=== PATIENT | female | born 1980 | race Caucasian/White ===

== ENCOUNTER → 2019-08-02 | Outpatient (CLI) | payer OTHER ==
[~2019-08-02] MED LIST: AZIT250T PO; IPRA3AMP29 NEB; PRED5TAB PO
== END | disposition home or self-care (01) ==
LOC: LAB 21:09
PROVIDERS: ATTEND Internal Medicine Cardiovascular Disease
DX: Z20.828 Contact with and (suspected) exposure to other viral communicable diseases (principal)
CPT/HCPCS: 87635

== ENCOUNTER → 2019-08-07 | Outpatient (CLI) | payer OTHER ==
[2019-08-07 13:56] LABS: BASO % 1 % (0-3); EOS % 1 % (0-3); HEMATOCRIT 43.5 % (36.0-47.0); HEMOGLOBIN 14.4 g/dL (12.0-15.5); LYMPH # 0.7 x10^3/uL (1.0-4.8); LYMPH % 20 % (24-48); MEAN CORPUSCULAR HEMOGLOBIN 31 pg (25-35); MEAN CORPUSCULAR HGB CONC 33 g/dL (31-37); MEAN CORPUSCULAR VOLUME 92 fL (79-100); MONO # 0.3 x10^3/uL (0.0-1.1); MONO % 9 % (0-9); NEUT # 2.5 x10^3uL (1.8-7.7); NEUT % 69 % (31-73); PLATELET COUNT 103 x10^3/uL (140-400); RED BLOOD COUNT 4.74 x10^6/uL (3.50-5.40); RED CELL DISTRIBUTION WIDTH 13.4 % (11.5-14.5); WHITE BLOOD COUNT 3.5 x10^3/uL (4.0-11.0)
[2019-08-07 14:03] LABS: CALCIUM 9.1 mg/dL (8.5-10.1); GFR 62.1; POTASSIUM 3.5 mmol/L (3.5-5.1)
--- NOTE | 2019-08-07 14:10 | RAD ---
CT CHEST WO CONTRAST INDICATION: Dyspnea, positive for COVID 19. COMPARISON STUDY: Radiograph 01/04/2013. TECHNIQUE: Unenhanced axial images were obtained through the lungs and upper abdomen. Coronal and sagittal multiplanar reconstructions were also obtained. PQRS compliance statement: One or more of the following individualized dose reduction techniques were utilized for this examination: 1. Automated exposure control 2. Adjustment of the mA and/or kV according to patient size 3. Use of iterative reconstruction technique FINDINGS: Lungs and Airways: Bilateral peripheral subpleural groundglass opacities involving the middle lobe, lingula, and lower lobes. Indeterminate middle lobe nodule measuring 0.4 cm (series 2 image 51). Normal central airways. Pleura: The pleural spaces are normal. Heart and Mediastinum: The visualized thyroid gland is normal in size and attenuation. No axillary or supraclavicular lymphadenopathy. No mediastinal, hilar or retrocrural lymphadenopathy. The heart and pericardium are within normal limits. The great vessels of the thorax are normal. Residual thymic tissue Abdomen: The visualized abdominal organs demonstrate no abnormality. Bones and Soft Tissues: The visualized skeletal structures and soft tissues of the chest wall are within normal limits. IMPRESSION: Bilateral peripheral groundglass opacities, likely representing a multifocal infectious/inflammatory process given patient's history of Covid 19 infection. Electronically signed by: Guevara Bhardwaj MD (08/07/2019 2:07 PM) [id number]
== END | disposition home or self-care (01) ==
LOC: CT 13:10
PROVIDERS: ATTEND Family Medicine
DX: U07.1 COVID-19 (principal); J98.8 Other specified respiratory disorders
CPT/HCPCS: 36415; 71250; 80048; 85025

== ENCOUNTER → 2019-08-21 | Outpatient (CLI) | payer OTHER ==
[~2019-08-21] MED LIST changes: +IOHEXOL 350 MG/ML 100 ML VIAL. IV ONE
--- NOTE | 2019-08-21 14:25 | RAD ---
EXAM: CT Pulmonary Angiogram INDICATION: Shortness of breath. Covid positive TECHNIQUE: Multi-detector row images were acquired from the thoracic inlet through the upper abdomen with the use of IV contrast. Sagittal and coronal images were acquired from the transaxial data. MIP images of the pulmonary arteries were obtained. All CT scans performed at this facility utilize dose optimization techniques as appropriate to the exam, including the following: Automated exposure control and adjustment of the mA and/or KV according to patient size (this includes techniques or standardized protocols for targeted exams where dose is indication/reason for exam). IV CONTRAST: Administered COMPARISON: None FINDINGS: PULMONARY ARTERIES: No pulmonary emboli are identified. CARDIOVASCULAR: Unremarkable Aorta is normal caliber. MEDIASTINUM & MOON: No adenopathy or masses. LUNGS: Bilateral lower lobe patchy groundglass opacities are present peripherally. PLEURAL SPACE: No pleural effusions or pneumothorax. OSSEOUS & SOFT TISSUE: Unremarkable ABDOMEN: The visualized portions of the upper abdomen are unremarkable. IMPRESSION: 1. No pulmonary emboli. 2. Bilateral groundglass opacities in the lower lobes, compatible with an atypical pneumonia. Electronically signed by: Sangita Bowen MD (08/21/2019 2:23 PM) [id number]
[2019-08-21 14:31] LABS: BASO # 0.1 x10^3/uL (0.0-0.2); BASO % 2 % (0-3); EOS # 0.1 x10^3/uL (0.0-0.7); EOS % 2 % (0-3); HEMATOCRIT 42.3 % (36.0-47.0); HEMOGLOBIN 13.9 g/dL (12.0-15.5); LYMPH # 1.3 x10^3/uL (1.0-4.8); LYMPH % 24 % (24-48); MEAN CORPUSCULAR HEMOGLOBIN 30 pg (25-35); MEAN CORPUSCULAR HGB CONC 33 g/dL (31-37); MEAN CORPUSCULAR VOLUME 92 fL (79-100); MONO # 0.5 x10^3/uL (0.0-1.1); MONO % 9 % (0-9); NEUT # 3.4 x10^3uL (1.8-7.7); NEUT % 64 % (31-73); PLATELET COUNT 157 x10^3/uL (140-400); RED BLOOD COUNT 4.63 x10^6/uL (3.50-5.40); RED CELL DISTRIBUTION WIDTH 13.3 % (11.5-14.5); WHITE BLOOD COUNT 5.3 x10^3/uL (4.0-11.0)
[2019-08-21 14:54] LABS: ALBUMIN 3.9 g/dL (3.4-5.0); CALCIUM 9.4 mg/dL (8.5-10.1); GFR 62.1; POTASSIUM 3.6 mmol/L (3.5-5.1); TOTAL BILIRUBIN 0.5 mg/dL (0.2-1.0); TOTAL PROTEIN 7.7 g/dL (6.4-8.2)
--- NOTE | 2019-08-21 17:01 | EKG ---
[address] [address] Test Date: 1999-05-07 Test Time: 02:45:41 Pat Name: CAROL NAZARIO Department: Room: Gender: F Public Housing Manager: : 1980 Requested By: LEONARDA TODD Order Number: [id number] Reading MD: Christiano Ryan Measurements Intervals [place] Rate: 87 P: 26 UT: 138 QRS: 28 QRSD: 114 T: 28 QT: 346 QTc: 417 Interpretive Statements SINUS RHYTHM LEFT ATRIAL ABNORMALITY INCOMPLETE RIGHT BUNDLE BRANCH BLOCK T ABNORMALITY IN ANTEROSEPTAL LEADS ABNORMAL ECG RI6.01 No previous ECG available for comparison Electronically Signed On 08-21-2019 19:26:45 CDT by Christiano Ryan
== END | disposition home or self-care (01) ==
LOC: CT 13:22
PROVIDERS: ATTEND Family Medicine
DX: J18.9 Pneumonia, unspecified organism (principal); R06.02 Shortness of breath; R94.31 Abnormal electrocardiogram [ECG] [EKG]; Z09 Encounter for follow-up examination after completed treatment for conditions other than malignant neoplasm; Z86.19 Personal history of other infectious and parasitic diseases
CPT/HCPCS: 36415; 71275; 80053; 83880; 84484; 85025; 85379; 93005; Q9967

== ENCOUNTER 2019-08-22 17:13 | Inpatient (IN) | payer OTHER ==
[~2019-08-22] VITALS: Ht 175.3 cm; Wt 84.3 kg
--- NOTE | 2019-08-22 17:39 | PHYS DOC ---
Past History Past Medical History: Asthma Additional Past Medical Histor: ITP Past Surgical History: No Surgical History Smoking: Non-smoker Drug Use: None General Adult EDM: Chief Complaint: SHORTNESS OF BREATH HPI: HPI: Patient is a 39 year old female who presents with evaluation of shortness of air. Patient has a known diagnosis of COVID-19 back on August 01. Patient has a history of asthma. Patient has already completed a course of Plaquenil and oral Zithromax several days ago. She states that her shortness of air has begun to worsen. Patient become short of breath when bending or moving. She is also short of breath with exertion up stairs etc. Pt does not have conversational dyspnea. Patient had a CT scan done as an outpatient yesterday that showed groundglass appearance. There was no pulmonary embolism present. Her CBC and chemistries yesterday were unremarkable. Patient been in contact with Dr. Jones her physician. She is also been in phone contact with Dr. Cole the Platform Software Engineer. She was told she should come to the hospital and to be a dmitted and placed on atypical pneumonia IV antibiotic. Review of Systems: Review of Systems: Constitutional: Denies fever or chills Eyes: Denies change in visual acuity HENT: Denies nasal congestion or sore throat Respiratory: Has shortness of breath Cardiovascular: Denies chest pain or edema GI: Denies abdominal pain, nausea, vomiting, bloody stools or diarrhea : Denies dysuria Musculoskeletal: Denies back pain or joint pain Integument: Denies rash Neurologic: Denies headache, focal weakness or sensory changes Endocrine: Denies polyuria or polydipsia Lymphatic: Denies swollen glands Psychiatric: Denies depression or anxiety Heart Score: Risk Factors: Risk Factors: DM, Current or recent (<one month) smoker, HTN, HLP, family history of CAD, obesity. Risk Scores: Score 0 - 3: 2.5% MACE over next 6 weeks - Discharge Home Score 4 - 6: 20.3% MACE over next 6 weeks - Admit for Clinical Observation Score 7 - 10: 72.7% MACE over next 6 weeks - Early Invasive Strategies Allergies: Allergies: Allergies Coded Allergies Type Severity Reaction Last Updated Verified No Known Drug Allergies 08/21/19 No Physical Exam: PE: Constitutional: Well developed, well nourished, mild distress, non-toxic appearance. [] HENT: Normocephalic, atraumatic, bilateral external ears normal, oropharynx moist, no oral exudates, nose normal. [] Eyes: PERRLA, EOMI, conjunctiva normal, no discharge. [] Neck: Normal range of motion, no tenderness, supple, no stridor. [] Cardiovascular:Heart rate regular rhythm, no murmur [] Lungs & Thorax: Bilateral breath sounds minimal decreased breath sounds, scant wheezing [] Abdomen: Bowel sounds normal, soft, no tenderness, no masses, no pulsatile masses. [] Skin: Warm, dry, no erythema, no rash. [] Back: No tenderness, no CVA tenderness. [] Extremities: No tenderness, no cyanosis, no clubbing, ROM intact, no edema. [] Neurologic: Alert and oriented X 3, normal motor function, normal sensory function, no focal deficits noted. [] Psychologic: Affect normal, judgement normal, mood normal. [] Current Patient Data: Labs: positive COVID 19 on August 01 EKG: EKG: [] Radiology/Procedures: Radiology/Procedures: CT chest 08/20: ground class atypical pneumonia, no PE[] Course & Med Decision Making: Course & Med Decision Making Pertinent Labs and Imaging studies reviewed. (See chart for details) 1837 Dr. Multani is the accepting physician and case was discussed at length. In light of the fact the patient had worsening symptoms and known COVID-19 infection will admit to the hospital. There was pneumonia noted on CT scan from yesterday. We will start pt on IV zithromax, blood cultures added. Char Disclaimer: Char Disclaimer: This electronic medical record was generated, in whole or in part, using a voice recognition dictation system. Departure Departure: Impression: Primary Impression: Atypical pneumonia Additional Impressions: COVID-19 virus infection History of asthma Disposition: ADMITTED INPATIENT Admitting Physician: Brayan Multani Condition: STABLE Referrals: PCP,NO (PCP) COVID-19 Patient Risks: Age 65 or older: No Sign of co-morbidity: Yes Exp to person + for COVID: Yes Exp to PUI: Yes Travel from affected area: No Lower respiratory symptoms: Yes Fever: No Other: Yes Comments: short of air with exertion PPE Use: Full PPE with N95 mask or PAPR: Yes (face shield, gown, gloves, booties, n95 mask) VIPUL BADILLO DO Aug 22, 2019 17:39
[2019-08-22] MEDS ORDERED: IV NORMAL SALINE 1,000ML 1,000 ML IV ONE (18:15)
[2019-08-22] MEDS ORDERED: AZITHROMYCIN 500 MG in IV NORMAL SALINE 250ML 250 ML IV ONE (19:15)
[2019-08-22] MEDS ORDERED: ACETAMINOPHEN 325 MG TABLET PO PRN (19:15)
[2019-08-22] MEDS ORDERED: AZITHROMYCIN 500 MG VIAL. IV ONE (19:32)
[2019-08-22] MEDS ORDERED: IV NORMAL SALINE 250ML 250 ML ONE (19:32)
[2019-08-22 19:37] LABS: CALCIUM 9.4 mg/dL (8.5-10.1); GFR 62.1; POTASSIUM 3.7 mmol/L (3.5-5.1)
[2019-08-22 19:43] LABS: ALBUMIN 3.7 g/dL (3.4-5.0); ALBUMIN/GLOBULIN RATIO 1.1 (1.0-1.7); TOTAL BILIRUBIN 0.3 mg/dL (0.2-1.0); TOTAL PROTEIN 7.2 g/dL (6.4-8.2)
[2019-08-22 20:02] LABS: BASO % 1 % (0-3); EOS # 0.1 x10^3/uL (0.0-0.7); EOS % 2 % (0-3); HEMATOCRIT 39.4 % (36.0-47.0); HEMOGLOBIN 12.9 g/dL (12.0-15.5); LYMPH # 1.4 x10^3/uL (1.0-4.8); LYMPH % 26 % (24-48); MEAN CORPUSCULAR HEMOGLOBIN 30 pg (25-35); MEAN CORPUSCULAR HGB CONC 33 g/dL (31-37); MEAN CORPUSCULAR VOLUME 92 fL (79-100); MONO # 0.4 x10^3/uL (0.0-1.1); MONO % 8 % (0-9); NEUT # 3.3 x10^3uL (1.8-7.7); NEUT % 63 % (31-73); PLATELET COUNT 140 x10^3/uL (140-400); RED CELL DISTRIBUTION WIDTH 13.5 % (11.5-14.5); WHITE BLOOD COUNT 5.2 x10^3/uL (4.0-11.0)
[2019-08-22 21:03] VITALS: BP 122/77
--- NOTE | 2019-08-22 21:53 | NUR ---
The patient, CAROL NAZARIO, 39 y/o, F admitted by LEONARDA TODD MD, was given written information regarding hospital policies, unit procedures and contact persons. Patient accompanied onto the unit by EMS personnel and nursing engineering design supervisor via rripley. Patient ambulated independently from gurney to bed. Vital signs assessed and stable. Patient tested positive for COVID on 08/02/19. Patient reports that her breathing still has not improved, she gets short of breath with activity and bending over. Patient came in through the ED per recommendation of primary care phsycian and Dr. Cole for atypical pneumonia. Valuables were checked and left in room with pt. Call light within reach.
[2019-08-22 23:02] VITALS: BP 121/81
[2019-08-23 00:42] VITALS: BP 108/74
[2019-08-23 06:16] VITALS: BP 94/69
--- NOTE | 2019-08-23 07:58 | NUR ---
IP: patient + COVID-19, requires contact and airborne precautions.
[2019-08-23 11:08] VITALS: BP 109/66
--- NOTE | 2019-08-23 13:48 | HP ---
ADMIT DATE: 08/22/2019 HISTORY OF PRESENT ILLNESS: A 39-year-old female in, she had SARS-2 COVID-19 infection back on 08/03/2019. She was treated with Plaquenil and Zithromax earlier in the process, as she was quite ill and actually she improved and then she has been getting worse here in the last week or so. She gets short of breath with minimal exertion and does not have any problems talking. 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 The patient denies chest pain. She denies any fever or chills presently. The main problem is this progressive shortness of breath with minimal exertion. Her [id number] test repeated is still pending. She was admitted for further evaluation and observation. Dr. Cole, noted organizational psychologist will be following her by telemedicine. PAST MEDICAL HISTORY: Asthma and ITP. PAST SURGICAL HISTORY: Tonsillectomy. IMMUNIZATION: Influenza vaccination up-to-date. FAMILY HISTORY: Mother with hypercholesterolemia. ALLERGIES: To PENICILLINS. MEDICATIONS: The patient was just on a ProAir inhaler at home. 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 REVIEW OF SYSTEMS: She initially did have some problems with taste, although she says her taste has come back. Her appetite is good. She denies fever, chills, nausea or vomiting. Denies abdominal pain. Denies chest pain. Does not bring up any phlegm with coughing. Denies any bleeding problems. Denies any problems with her legs. Neurologically intact. PHYSICAL EXAMINATION: GENERAL: This is a pleasant white 39-year-old female, who looks her stated age. Baseline stable. She is sitting in her bed in the ICU. VITAL SIGNS: Blood pressure 122/77, respiratory rate 18, pulse 76. Pulse went up to a little bit over 100 when she was talking, but normal, will come down into the 70s and 80s. Oxygen saturation remains constant anywhere from 96-99% oxygen saturation. The patient's weight is 77 kilos. HEENT: The patient's head was atraumatic, normocephalic. Eyes: PERRLA. Mouth and throat normal. NECK: Supple. LUNGS: Clear except for some mild diminishment in the bases. There is no wheezing noted. No rhonchi. CARDIOVASCULAR: Regular sinus rhythm. S1, S2, without any rub, thrill or murmur noted. ABDOMEN: Soft, nontender. EXTREMITIES: No clubbing, cyanosis or edema. NEUROLOGIC: The patient is alert and oriented. Speech is fluent, spontaneous and appropriate. Cranial nerves 2-12 grossly intact. Moving all extremities well. LABORATORY DATA: Non-conclusive. The patient's blood count was 5.2, hemoglobin and hematocrit 12.9 and 39, platelets 140. The patient also had sodium 141, ____ 3.7, BUN and creatinine 13 and 1, glucose 86. Liver enzymes were normal. The patient will be admitted for further evaluation. IMPRESSION AND PLAN: Acute dyspnea; recent [id number] infection, being repeated there; possible atypical pneumonia. A repeat on her CT scan still demonstrated negative for pulmonary embolism; however, did demonstrate appearance of ground glass opacities in the lower lobe, so we will continue to monitor on that and make further evaluation along with the assistance of Dr. Cole, Pulmonology from [place]. She is receiving IV Zithromax as well as some Plaquenil. Discussed this with the patient and she was in agreement with that. LEONARDA TODD MD DR: JEANETTE/janis JOB#: [id number] / [id number]
[2019-08-23] MEDS ORDERED: AZITHROMYCIN 250 MG in IV NORMAL SALINE 250ML 250 ML IV SCH (15:00)
[2019-08-23 15:33] VITALS: BP 109/75
--- NOTE | 2019-08-23 16:40 | EKG ---
[address] [address] Test Date: 1999-05-09 Test Time: 02:57:38 Pat Name: CAROL NAZARIO Department: Room: [facility]06 1 Gender: F Cream Dipper: : 1980 Requested By: LEONARDA TODD Order Number: [id number] Reading MD: Matteo Fontenot MD Measurements Intervals [place] Rate: 73 P: 52 IN: 140 QRS: 56 QRSD: 104 T: 49 QT: 362 QTc: 402 Interpretive Statements SINUS RHYTHM INCOMPLETE RIGHT BUNDLE BRANCH BLOCK Electronically Signed On 08-24-2019 8:32:33 CDT by Matteo Fontenot MD
[2019-08-23] MEDS: HYDROXYCHLOROQUINE (PROGRAM) 200 MG TABLET PO SCH (16:55)
[2019-08-23 19:52] VITALS: BP 113/78
[2019-08-23] MEDS: ACETAMINOPHEN 325 MG TABLET PO PRN (20:02)
[2019-08-23] MEDS: AZITHROMYCIN 250 MG in IV NORMAL SALINE 250ML 250 ML IV SCH (20:02)
[2019-08-23] MEDS: LACTOBACILLUS RHAMNOSUS GG 1 CAPSULE. PO SCH (20:02)
--- NOTE | 2019-08-23 20:15 | NUR ---
Pt reports having a headache, rating it a 3/10. PRN Tylenol given upon pt request.
[2019-08-23] MEDS ORDERED: AZITHROMYCIN 250 MG TABLET. PO SCH (21:00)
[2019-08-23 23:08] VITALS: BP 116/74
[2019-08-24] MEDS: HYDROXYCHLOROQUINE (PROGRAM) 200 MG TABLET PO SCH (05:35)
[2019-08-24 06:06] VITALS: BP 95/66
[2019-08-24] MEDS: LACTOBACILLUS RHAMNOSUS GG 1 CAPSULE. PO SCH ×2 (08:30→19:42)
[2019-08-24 09:11] VITALS: BP 111/81
[2019-08-24 09:53] LABS: CALCIUM 9.2 mg/dL (8.5-10.1); CREATININE 1.1 mg/dL (0.6-1.0); GFR 55.6; POTASSIUM 3.7 mmol/L (3.5-5.1)
[2019-08-24 10:02] LABS: BASO % 1 % (0-3); EOS # 0.2 x10^3/uL (0.0-0.7); EOS % 3 % (0-3); HEMATOCRIT 42.9 % (36.0-47.0); HEMOGLOBIN 14.2 g/dL (12.0-15.5); LYMPH # 1.4 x10^3/uL (1.0-4.8); LYMPH % 28 % (24-48); MEAN CORPUSCULAR HEMOGLOBIN 30 pg (25-35); MEAN CORPUSCULAR HGB CONC 33 g/dL (31-37); MEAN CORPUSCULAR VOLUME 92 fL (79-100); MONO # 0.4 x10^3/uL (0.0-1.1); MONO % 8 % (0-9); NEUT # 2.9 x10^3uL (1.8-7.7); NEUT % 60 % (31-73); PLATELET COUNT 139 x10^3/uL (140-400); RED BLOOD COUNT 4.69 x10^6/uL (3.50-5.40); RED CELL DISTRIBUTION WIDTH 13.4 % (11.5-14.5); WHITE BLOOD COUNT 4.9 x10^3/uL (4.0-11.0)
[2019-08-24] MEDS ORDERED: IPRATRPIUM/ALBUTEROL 0.5/2.5MG 3 ML NEBU. NEB SCH (12:00)
[2019-08-24] MEDS: IPRATROPIUM/ALBUTEROL 20/100mcg/INH INHALER. INH SCH ×2 (14:16→19:40)
[2019-08-24 14:21] VITALS: BP 102/72
--- NOTE | 2019-08-24 15:00 | NUR ---
Patient doing well today, continues to state that she feels short of breath upon exertion and has to take deep breaths when over exertion. Patient vitals remain stable, sats remain 98% on room air and remains afebrile. Patient allowed to ambulate throughout unit with proper mask and gown to increase lung strength. Notified Dr. Mccracken office this morning in regards to patients condition, per slot shift manager and patient, physician was suppose to be receiving a tele video call from canvas cutter. Patient states she has not received phone call. Nurse states Dr Pena is analytics consultant for today but will let Dr Vera know. Nurse has given office patient cell phone number to do (doxy.id phone conference). COVID 19 retested as of today, notified by infection control that they have discussed with [facility] that based on patients CT and clinical signs patient should be retested. COVID 19 pending at this time. Spoke with Dr Multani, plan is to continue on IV Zithro and DC Plaquenil.
[2019-08-24] MEDS: ACETAMINOPHEN 325 MG TABLET PO PRN (19:40)
[2019-08-24] MEDS: AZITHROMYCIN 250 MG in IV NORMAL SALINE 250ML 250 ML IV SCH (19:40)
[2019-08-24 20:43] VITALS: BP 113/78
[2019-08-24] MEDS ORDERED: HYDROXYCHLOROQUINE (PROGRAM) 200 MG TABLET PO SCH (21:00)
--- NOTE | 2019-08-24 23:02 | NUR ---
Pt is afebrile. PRN tylenol given for c/o TAYLOR, rated 3/10. Pt reports effective. Walked pt in gown and mask to shower. Tolerated fair--mild SOA with exertion, but pt able to recover quickly. Pt reports feeling better after getting cleaned up.
[2019-08-24 23:22] VITALS: BP 120/76
--- NOTE | 2019-08-24 23:54 | PN ---
DATE: SUBJECTIVE: A 39-year-old female. The patient has had acute exacerbation of respiratory distress. The patient has had problems with breathing, unable to walk more than 15-20 feet without getting extremely short of breath. The patient is making good recovery. She is on IV Zithromax and has talked to Pulmonology as well. The patient will continue to be monitored carefully and make further evaluation on her as indicated. OBJECTIVE: VITAL SIGNS: The patient's blood pressure 102/70, respiratory rate 22, afebrile, a pulse of 98. GENERAL: The patient is alert and oriented. LUNGS: Diminished, but clear. CARDIOVASCULAR: Stable. ABDOMEN: Soft, nontender. LABORATORY DATA: White count 4.9, hemoglobin 14 and 42. The patient otherwise, sodium 138. Creatinine has bumped up a little bit to 1.1, needs to increase fluids. COVID-19, SARS has been negative so far. We will repeat for 2 negatives. IMPRESSION: Otherwise, acute respiratory distress, dyspnea, history of severe acute respiratory syndrome coronavirus disease 2019 infection. PLAN: The patient continued to be monitored and continue on IV Zithromax and possible discharge in the a.m. LEONARDA TODD MD DR: JEANETTE/janis JOB#: [id number] / [id number]
[2019-08-25 05:30] VITALS: BP 104/56
[2019-08-25] MEDS: LACTOBACILLUS RHAMNOSUS GG 1 CAPSULE. PO SCH ×2 (08:26→16:32)
[2019-08-25] MEDS: IPRATROPIUM/ALBUTEROL 20/100mcg/INH INHALER. INH SCH ×3 (08:26→15:08)
--- NOTE | 2019-08-25 09:30 | NUR ---
pt is awaiting a call from Dr. Cole (pulm) regarding her condition. This RN called Dr. Cole's office, I spoke to Osmani, she will check on the status and call us back. Dr. Multani arrived, he just spoke to Dr. Omalley, he was advised that pt's CT does show some improvement, and that he thinks her symptoms are related to her asthma and he suggested prednisone and duoneb treatments and follow up with him in [address] Multani gave orders for Solumedrol 40mg IVP and 1 duoneb treatment and monitor to see how pt feels before deciding on discharge. WCTM
[2019-08-25] MEDS ORDERED: IPRATRPIUM/ALBUTEROL 0.5/2.5MG 3 ML NEBU. NEB ONE ×2 (10:00→15:15)
[2019-08-25] MEDS ORDERED: methylPREDNISolone SOD SUCC PF 40 MG/ML VIAL. IV ONE ×2 (10:00→13:30)
[2019-08-25 11:00] VITALS: BP 106/56
[2019-08-25] MEDS ORDERED: IPRA3AMP29 NEB (13:27)
[2019-08-25] MEDS ORDERED: PRED5TAB PO (13:27)
--- NOTE | 2019-08-25 14:00 | NUR ---
Pt requesting another dose of IV solumedrol and duoneb before deciding on discharging home. ordered Solumedrol 20mg IVP and duoneb x1. Pt will discharge home at 1630. WCTM
[2019-08-25 15:00] VITALS: BP 110/64
[2019-08-25] MEDS ORDERED: AZIT250T PO (15:44)
[2019-08-25] MEDS ORDERED: AZITHROMYCIN 250 MG TABLET. ONE ×2 (16:04→16:27)
--- NOTE | 2019-08-25 16:45 | NUR ---
reviewed all discharge instructions and medications with pt. scripts had been sent Electronically by Dr. Multani. Answered all questions pt and friend had prior to discharge. IV dc'd without complication, tip intact. Pt requested to walk to [facility] at front entrance upon discharge
[2019-08-25] MEDS ORDERED: AZITHROMYCIN 250 MG TABLET. PO SCH (21:00)
[2019-08-26] MEDS ORDERED: AZITHROMYCIN 250 MG TABLET. PO SCH (09:00)
== END 2019-08-25 16:50 | disposition home or self-care (01) | DRG 204 ==
LOC: ER 17:13 → ICU 18:50
PROVIDERS: ADMIT Family Medicine; ATTEND Family Medicine
DX: R06.03 Acute respiratory distress (principal); D69.3 Immune thrombocytopenic purpura; J45.909 Unspecified asthma, uncomplicated; R26.2 Difficulty in walking, not elsewhere classified; Z20.828 Contact with and (suspected) exposure to other viral communicable diseases; Z88.0 Allergy status to penicillin; Z83.49 Family history of other endocrine, nutritional and metabolic diseases
CPT/HCPCS: 36415; 80048; 80053; 85025; 87040; 87635; 93005; 94640; 96361; 96365; 96366; G0238; J0456; J2920; J7050; 99285-25; J7030

== ENCOUNTER → 2019-10-04 | Outpatient (CLI) | payer OTHER ==
[~2019-10-04] MED LIST changes: -IOHEXOL 350 MG/ML 100 ML VIAL. IV ONE
--- NOTE | 2019-10-04 15:04 | CARD ---
MR#: [id number] Date of Study: 10/04/2019 Ordering Physician: ROSEMARY GORDON, Referring Physician: ROSEMARY GORDON, Tech: Karina Cervantes APPROVED REPORT EXAM: Two-dimensional and M-mode echocardiogram with Doppler and color Doppler. Other Information Quality : GoodHR: 69bpm INDICATION Dyspnea 2D DIMENSIONS RVDd2.6 (2.9-3.5cm)Left Atrium(2D)2.7 (1.6-4.0cm) IVSd1.0 (0.7-1.1cm)Aortic Root(2D)2.7 (2.0-3.7cm) LVDd4.4 (3.9-5.9cm)LVOT Diameter2.0 (1.8-2.4cm) PWd0.9 (0.7-1.1cm)LVDs2.7 (2.5-4.0cm) FS (%) 39.2 %SV62.1 ml Aortic Valve AoV Peak Eduard.140.0cm/sAoV VTI29.6cm AO Peak GR.7.8mmHgLVOT Peak Eduard.120.5cm/s LVOT VTI 28.08cmAO Mean GR.4mmHg SUSANA (VMAX)2.14lv9CQJ (VTI)3.07cm2 Mitral Valve MV E Pjgjajzb05.8cm/sMV DECEL [id number] MV A Awexqvir97.6cm/sE/A Ratio1.5 Tricuspid Valve TR P. Fyawhpph994cc/sRAP UDTJEZIR8sjHq TR Peak Gr.96eaQfIYQF48qaJm LEFT VENTRICLE The left ventricle is normal size. There is normal left ventricular wall thickness. The left ventricu lar systolic function is normal and the ejection fraction is within normal range. The Ejection Fracti on is 55-60%. There is normal LV segmental wall motion. The left ventricular diastolic function and f illing is normal for age. RIGHT VENTRICLE The right ventricle is normal size. There is normal right ventricular wall thickness. The right ventr icular systolic function is normal. ATRIA The left atrium size is normal. The right atrium size is normal. The interatrial septum is intact wit h no evidence for an atrial septal defect or patent foramen ovale as noted on 2-D or Doppler imaging. AORTIC VALVE The aortic valve is normal in structure and function. Doppler and Color Flow revealed no significant aortic regurgitation. There is no significant aortic valvular stenosis. MITRAL VALVE The mitral valve is normal in structure and function. There is no evidence of mitral valve prolapse. There is no mitral valve stenosis. Doppler and Color-flow revealed trace mitral regurgitation. TRICUSPID VALVE The tricuspid valve is normal in structure and function. Doppler and Color Flow revealed trace tricus pid regurgitation with an estimated PAP of 35 mmHg. There is no tricuspid valve stenosis. PULMONIC VALVE The pulmonic valve is not well visualized. Doppler and Color Flow revealed trace pulmonic valvular re gurgitation. GREAT VESSELS The aortic root is normal in size. The IVC is normal in size and collapses >50% with inspiration. PERICARDIAL EFFUSION There is no evidence of significant pericardial effusion. Critical Notification Critical Value: No <Conclusion> The left ventricle is normal size. The left ventricular systolic function is normal and the ejection fraction is within normal range. The Ejection Fraction is 55-60%. There is normal left ventricular wall thickness. The left ventricular diastolic function and filling is normal for age. Doppler and Color Flow revealed no significant aortic regurgitation. There is no significant aortic valvular stenosis. Doppler and Color-flow revealed trace mitral regurgitation. Doppler and Color Flow revealed trace tricuspid regurgitation with an estimated PAP of 35 mmHg. Signed by : Javier Painting MD Electronically Approved : 10/04/2019 15:03:46
== END | disposition home or self-care (01) ==
LOC: ECHO 13:44
PROVIDERS: ATTEND Internal Medicine Pulmonary Disease
DX: R06.02 Shortness of breath (principal)
CPT/HCPCS: 93306

== ENCOUNTER → 2019-11-06 | Outpatient (CLI) | payer OTHER ==
[2019-11-06 13:05] LABS: BASO # 0.1 x10^3/uL (0.0-0.2); BASO % 1 % (0-3); EOS # 0.1 x10^3/uL (0.0-0.7); EOS % 2 % (0-3); HEMATOCRIT 42.3 % (36.0-47.0); HEMOGLOBIN 14.2 g/dL (12.0-15.5); LYMPH # 1.4 x10^3/uL (1.0-4.8); LYMPH % 28 % (24-48); MEAN CORPUSCULAR HEMOGLOBIN 31 pg (25-35); MEAN CORPUSCULAR HGB CONC 34 g/dL (31-37); MEAN CORPUSCULAR VOLUME 93 fL (79-100); MONO # 0.4 x10^3/uL (0.0-1.1); MONO % 7 % (0-9); NEUT # 3.2 x10^3uL (1.8-7.7); NEUT % 62 % (31-73); PLATELET COUNT 116 x10^3/uL (140-400); RED BLOOD COUNT 4.56 x10^6/uL (3.50-5.40); RED CELL DISTRIBUTION WIDTH 13.8 % (11.5-14.5); WHITE BLOOD COUNT 5.2 x10^3/uL (4.0-11.0)
== END ==
LOC: LAB 12:30
PROVIDERS: ATTEND Family Medicine
DX: R06.09 Other forms of dyspnea (principal)
CPT/HCPCS: 36415; 85025; 85379

== ENCOUNTER → 2019-11-10 | Outpatient (CLI) | payer OTHER | END | disposition home or self-care (01) | LOC: LAB 20:02 | PROVIDERS: ATTEND Internal Medicine Cardiovascular Disease | DX: Z20.828 Contact with and (suspected) exposure to other viral communicable diseases (principal) | CPT/HCPCS: C9803; U0003; 36415 ==

== ENCOUNTER → 2019-12-25 | Outpatient (CLI) | payer OTHER ==
[~2019-12-25] MED LIST changes: +IOHEXOL 300 MG/ML 75 ML VIAL. IV ONE
--- NOTE | 2019-12-25 09:26 | RAD ---
CT CHEST WO CONTRAST INDICATION: ABNORMAL CT, COVID19+ 5 MONTHS AGO, STILL BALDWIN / Spl. Instructions: / History: . COMPARISON STUDY: 08/21/2019. TECHNIQUE: Unenhanced axial images were obtained through the lungs and upper abdomen. Coronal and sagittal multiplanar reconstructions were also obtained. PQRS compliance statement: One or more of the following individualized dose reduction techniques were utilized for this examination: 1. Automated exposure control 2. Adjustment of the mA and/or kV according to patient size 3. Use of iterative reconstruction technique FINDINGS: Lungs and Airways: No pulmonary mass or consolidation. Stable middle lobe 4 mm nodule. Normal central airways. Pleura: The pleural spaces are normal. Heart and Mediastinum: The visualized thyroid gland is normal in size and attenuation. No axillary or supraclavicular lymphadenopathy. No mediastinal, hilar or retrocrural lymphadenopathy. The heart and pericardium are within normal limits. The great vessels of the thorax are normal. Residual thymic tissue. Abdomen: The visualized abdominal organs demonstrate no abnormality. Bones and Soft Tissues: The visualized skeletal structures and soft tissues of the chest wall are within normal limits. IMPRESSION: 1. No pulmonary mass or consolidation. 2. No thoracic lymphadenopathy. 3. Stable middle lobe 4 mm nodule. Electronically signed by: Guevara Bhardwaj MD (12/25/2019 9:23 AM) [id number]
== END | disposition home or self-care (01) ==
LOC: CT 07:45
PROVIDERS: ATTEND Internal Medicine Pulmonary Disease
DX: R91.1 Solitary pulmonary nodule (principal)
CPT/HCPCS: 71250

== ENCOUNTER → 2020-02-20 | Outpatient (CLI) | payer OTHER ==
[~2020-02-20] MED LIST changes: -IOHEXOL 300 MG/ML 75 ML VIAL. IV ONE
--- NOTE | 2020-02-20 15:24 | CARD ---
MR#: [id number] Date of Study: 02/20/2020 Ordering Physician: LUISITO MEJIA, Referring Physician: LUISITO MEJIA, Tech: Chitra Slater FAM APPROVED REPORT EXAM: Two-dimensional and M-mode echocardiogram with Doppler and color Doppler. INDICATION Dyspnea 2D DIMENSIONS RVDd2.5 (2.9-3.5cm)Left Atrium(2D)3.1 (1.6-4.0cm) IVSd0.7 (0.7-1.1cm)Aortic Root(2D)2.4 (2.0-3.7cm) LVDd4.8 (3.9-5.9cm)LVOT Diameter2.2 (1.8-2.4cm) PWd0.7 (0.7-1.1cm)LVDs2.7 (2.5-4.0cm) FS (%) 30.0 %SV82.3 ml LVEF(%)60.0 (>50%) Aortic Valve AoV Peak Eduard.117.5cm/sAoV VTI21.8cm AO Peak GR.5.5mmHgLVOT Peak Eduard.99.2cm/s LVOT VTI 19.26cmAO Mean GR.3mmHg SUSANA (VMAX)3.82lg1RVR (VTI)3.25cm2 Mitral Valve MV E Snsoemtn65.6cm/sMV DECEL GONE771ra MV A Kscwfbpk01.9cm/sE/A Ratio1.2 Tricuspid Valve TR P. Byxdhred468jm/sRAP [id number] TR Peak Gr.86klReZGUN02foJn Pulmonary Vein S1 Zbpjwzer84.8cm/sD2 Ohkdived13.2cm/s LEFT VENTRICLE The left ventricle is normal size. There is normal left ventricular wall thickness. The left ventricu lar systolic function is normal. The Ejection Fraction is 55-60%. There is normal LV segmental wall m otion. The left ventricular diastolic function and filling is normal for age. RIGHT VENTRICLE The right ventricle is normal size. The right ventricular systolic function is normal. ATRIA The left atrium size is normal. The right atrium size is normal. The interatrial septum is intact wit h no evidence for an atrial septal defect or patent foramen ovale as noted on 2-D or Doppler imaging. AORTIC VALVE The aortic valve is normal in structure and function. Doppler and Color Flow revealed no significant aortic regurgitation. There is no significant aortic valvular stenosis. MITRAL VALVE The mitral valve is normal in structure and function. There is no evidence of mitral valve prolapse. There is no mitral valve stenosis. Doppler and Color Flow revealed no mitral valve regurgitation note d. TRICUSPID VALVE The tricuspid valve is normal in structure and function. Doppler and Color Flow revealed trace tricus pid regurgitation. The PA pressure was estimated at 27 mmHg. There is no tricuspid valve stenosis. PULMONIC VALVE The pulmonic valve is not well visualized. Doppler and Color Flow revealed trace pulmonic valvular re gurgitation. There is no pulmonic valvular stenosis. GREAT VESSELS The aortic root is normal in size. The ascending aorta is normal in size. The IVC is normal in size a nd collapses >50% with inspiration. PERICARDIAL EFFUSION There is no evidence of significant pericardial effusion. Critical Notification Critical Value: No <Conclusion> The left ventricular systolic function is normal. The Ejection Fraction is 55-60%. There is normal LV segmental wall motion. Trace tricuspid regurgitation. The PA pressure was estimated at 27 mmHg. There is no evidence of significant pericardial effusion. Signed by : Christiano Ryan, Electronically Approved : 02/20/2020 15:24:37
== END ==
LOC: ECHO 13:37
PROVIDERS: ATTEND Internal Medicine Pulmonary Disease
DX: R06.02 Shortness of breath (principal)
CPT/HCPCS: 93306

== ENCOUNTER → 2021-01-30 | Outpatient (CLI) | payer OTHER | LOC: LAB 13:14 | PROVIDERS: ATTEND Family Medicine | DX: B34.2 Coronavirus infection, unspecified (principal) | CPT/HCPCS: 36415 ==

== ENCOUNTER → 2021-05-12 | Outpatient (CLI) | payer OTHER | LOC: LAB 20:34 | DX: U07.1 COVID-19 (principal) | CPT/HCPCS: 87426 ==